=== PATIENT | female | born 1945 | race Caucasian/White ===

== ENCOUNTER 2016-07-02 14:00 | Inpatient (IN) | payer MEDICARE, OTHER ==
--- NOTE | 2016-07-02 17:37 | History and Physical Report ---
History of Present Illnes - History of Present Illness Reason for Visit: gait disturbance History of Present Illness: 71yo white female who underwent ant/posterior lumbar fusion of L3 thru S1. Patient did not have any interpretative problems. Patient states that since surgery she has been having some sharp radiating pain in the left hip/thigh area over the L2-3 area Did become anemic post surgery and was found to have a Hgb of 6.8. She was transfused 1 unit BRBC with Hgb improving to 8.3. Pain has been controlled with oxycodone/APAP 5/325 1-2 q 4 hours. Last BM was small and yesterday.No breathing issues, no chest pain noted. No urinary problems noted. Patient has been up ambulating short distances. - Past Medical History Cardiac: HTN Gastrointestinal: GERD Endocrine: Diabetes (type 2, diet controlled), Other (Vitamin D def) - Past Surgical History Past Surgical History: Appendectomy, Cataract Removal, Hysterectomy, Total Knee Replacement (left), Other (Anterior cervicaldisectomy and fussion, left arthroscopic surgery, BTL) - Past Family History Mother Family History: Cancer (uterine), (57yo) Father Family History: CAD, (61yo) Brother 1 Family History: Cancer (renal cell carcinoma), Brother 3 Family History: None Brother 4 Family History: None Sister 1 Family History: Cancer (breast), CAD, Sister 2 Family History: Cancer (breast), - Past Social History Smoke: # pack years (30), Quit (1989) Alcohol: None Drugs: None Lives: With Family Domestic Violence: Negative - Health Maintenance Health Maintenance: Cholesterol, Influenza Vaccine, Pneumococcal Vaccine, Mammogram Influenza Vaccine: Current for this Influenza Season Pneumonia Vaccine: Yes Resuscitation Status: full code - Unable to Obtain History Unable to Obtain: No Review of Systems - Review of Systems Constitutional: Weakness. negative: Fever, Chills Eyes: negative: pain, vision change ENT: negative: Ear Pain, Ear Discharge, Nose Pain, Nose Discharge, Nose Congestion, Mouth Pain, Mouth Swelling, Throat Pain Respiratory: negative: Cough, Dry, Shortness of Breath, Hemoptysis, SOB with Excertion, Pleuritic Pain, Sputum, Wheezing Cardiovascular: Edema (bilateral). negative: Chest Pain, Palpitations, Paroxysmal Noc. Dyspnea, Light Headedness Gastrointestinal: Constipation, Other (mild distention). negative: Nausea, Vomiting, Abdominal Pain, Diarrhea, Melena, Hematochezia Genitourinary: negative: Dysuria, Frequency, Incontinence, Hematuria Musculoskeletal: Back Pain Skin: negative: Rash, Lesions Neurological: negative: Weakness, Numbness, Incoordination, Change in Speech - Medications/Allergies Allergies/Adverse Reactions: Allergies Allergy/AdvReac Type Severity Reaction Status Date / Time tramadol Allergy Mild Unverified 10/21/12 14:02 CT Dye Allergy Mild Uncoded 10/21/12 14:02 Home Medications: Home Medications Aspirin [Adult Low Dose Aspirin EC] 1 tab PO DAILY 07/02/16 Calcium Citrate [Calcitrate] 1 tab PO DAILY 07/02/16 Cholecalciferol [Vitamin D-3] 7,000 units PO DAILY 07/02/16 Ferrous Sulfate [Feosol] 1 tab PO DAILY 07/02/16 Hydrocortisone 2.5% Rectal [Proctosol-Hc 2.5% Rectal] 1 applic RC HS 07/02/16 Omeprazole [Prilosec] 1 cap PO 0700 07/02/16 Polyethylene Glycol 3350 [Miralax] 1 packet PO [id number] 07/02/16 Pravastatin Sodium [Pravachol] 20 mg PO HS 07/02/16 Teriparatide [Forteo] 2.4 ml SQ 07/02/16 oxyCODONE HCL/ACETAMINOPHEN [Percocet 5/325] 1 - 2 tab PO Q4 PRN 07/02/16 Exam - Exam Vital Signs: Vital Signs (72 hours) 07/02/16 14:24 Temperature 98.4 F Pulse Rate [ 79 Right] Respiratory 18 Rate Blood Pressure 138/65 [Right Arm] O2 Sat by Pulse 98 Oximetry General: Alert, Oriented to Person, Oriented to Place, Oriented to Time, Cooperative, No acute distress HEENT: Atraumatic, PERRLA, EOMI, Mouth Mucous membr. moist/[place], Nose Mucous membr. moist/[place], Dentition Normal Neck: Normal Range of Motion Carotids: bruits noted bilateral L>R; 2/4 Thyroid: WNL Lungs: Clear to auscultation, Normal air movement, Speaks full Sentences Cardiovascular: Regular rate, Normal S1, Normal S2, No murmurs. No: Gallops, Murmur Abdomen: Normal bowel sounds, Soft (mild distention), No tenderness, No hepatospenomegaly, No masses Integumentary: Normal, [place], Warm, Dry, Other (tape [place] healing to the facial area, anterior abd dressing clean and dry, stables in the posterior inscision site) Extremities: No clubbing, No cyanosis, No edema, Normal pulses, No tenderness/ swelling Neurological: Normal gait, Normal speech, Strength Equal Bilat, Normal tone, Sensation intact, Cranial nerves 3-12 NL, Reflexes 2+ Psych/Mental Status: Mental status NL, Mood NL, Appropriate Affect, Intact Judgment VTE Assessment - RISK FACTOR SCORE VTE RISK FACTOR SCORES: AGE OVER 60 YEARS, ANTICIPATED BED CONFINEMENT OR IMMOBILIZATION > 24 HOURS, MAJOR SURGERY/ANESTHESIA TIME > 1 HOUR - RISK VTE MODERATE RISK: SCORE OF 2 (RISK PROXIMAL DVT 2-4%) PROPHYAXIS NEEDED VTE HIGH RISK: SCORE OF 3-4 (RISK PROXIMAL DVT 4-8%) PROPHYLAXIS NEEDED
[2016-07-02 17:38] VITALS: BMI 26.6
[2016-07-02] MEDS ORDERED: oxyCODONE/ACETAMINOPHEN 5/325 TABLET PO PRN (18:15)
[2016-07-02] MEDS ORDERED: ACETAMINOPHEN 325 MG TABLET PO PRN (18:23)
[2016-07-02] MEDS ORDERED: oxyCODONE/ACETAMINOPHEN 5/325 TABLET PO ONE (18:23)
[2016-07-02] MEDS ORDERED: POLYETHYLENE GLYCOL 3350 17 GM POWD.PACK ONE (18:35)
[2016-07-02] MEDS ORDERED: POLYETHYLENE GLYCOL 3350 17 GM POWD.PACK PO ONE (18:58)
[2016-07-02] MEDS: oxyCODONE/ACETAMINOPHEN 5/325 TABLET PO PRN (19:11)
[2016-07-02] MEDS: PRAVASTATIN SODIUM 20 MG TABLET PO SCH (21:35)
[2016-07-03] MEDS: oxyCODONE/ACETAMINOPHEN 5/325 TABLET PO PRN ×5 (00:57→21:39)
[2016-07-03] MEDS: CALCIUM CARB 500/VIT D 200 1 EACH TABLET PO SCH (08:05)
[2016-07-03] MEDS ORDERED: CHOLECALCIFEROL 1,000 UNIT TABLET PO SCH (09:00)
[2016-07-03] MEDS ORDERED: ASPIRIN EC 81 MG TABLET.DR PO SCH (09:00)
[2016-07-03] MEDS ORDERED: POLYETHYLENE GLYCOL 3350 17 GM POWD.PACK PO SCH (18:00)
[2016-07-03] MEDS ORDERED: ENOXAPARIN SODIUM 100 MG/ML DISP.SYRIN SQ ONE (18:56)
[2016-07-03] MEDS ORDERED: ENOXAPARIN SODIUM 40 MG/0.4 ML DISP.SYRIN SQ ONE (19:16)
[2016-07-03] MEDS: PRAVASTATIN SODIUM 20 MG TABLET PO SCH (19:29)
[2016-07-04] MEDS: oxyCODONE/ACETAMINOPHEN 5/325 TABLET PO PRN ×3 (07:53→23:57)
[2016-07-04] MEDS: CALCIUM CARB 500/VIT D 200 1 EACH TABLET PO SCH (08:18)
[2016-07-04] MEDS ORDERED: MAGNESIUM CITRATE 296 ML BOTTLE PO ONE (08:47)
[2016-07-04] MEDS: POLYETHYLENE GLYCOL 3350 17 GM POWD.PACK PO SCH ×2 (09:07→20:37)
[2016-07-04] MEDS ORDERED: ENOXAPARIN SODIUM 40 MG/0.4 ML DISP.SYRIN SQ ONE (13:59)
[2016-07-04] MEDS ORDERED: POLYETHYLENE GLYCOL 3350 17 GM POWD.PACK PO SCH (18:00)
[2016-07-04] MEDS: PRAVASTATIN SODIUM 20 MG TABLET PO SCH (20:37)
[2016-07-04] MEDS: ENOXAPARIN SODIUM 60 MG/0.6 ML DISP.SYRIN SQ SCH (20:38)
[2016-07-05] MEDS: oxyCODONE/ACETAMINOPHEN 5/325 TABLET PO PRN ×4 (07:23→20:43)
[2016-07-05] MEDS: CALCIUM CARB 500/VIT D 200 1 EACH TABLET PO SCH (08:26)
[2016-07-05] MEDS: POLYETHYLENE GLYCOL 3350 17 GM POWD.PACK PO SCH ×2 (08:27→20:43)
[2016-07-05] MEDS ORDERED: ENOXAPARIN SODIUM 40 MG/0.4 ML DISP.SYRIN SQ ONE (13:21)
[2016-07-05] MEDS ORDERED: HYDROCORTISONE 2.5% RECTAL 28.35 GM TUBE RC PRN (14:00)
[2016-07-05] MEDS: ACYCLOVIR 200 MG CAPSULE PO SCH ×2 (18:33→20:42)
[2016-07-05] MEDS: CHOLECALCIFEROL 1,000 UNIT TABLET PO SCH (18:33)
[2016-07-05] MEDS: ASPIRIN EC 81 MG TABLET.DR PO SCH (18:34)
[2016-07-05] MEDS: ENOXAPARIN SODIUM 60 MG/0.6 ML DISP.SYRIN SQ SCH (20:42)
[2016-07-05] MEDS: PRAVASTATIN SODIUM 20 MG TABLET PO SCH (20:43)
[2016-07-06] MEDS: oxyCODONE/ACETAMINOPHEN 5/325 TABLET PO PRN ×4 (01:42→20:18)
[2016-07-06] MEDS: ACYCLOVIR 200 MG CAPSULE PO SCH ×4 (07:43→20:18)
[2016-07-06] MEDS: ASPIRIN EC 81 MG TABLET.DR PO SCH (07:43)
[2016-07-06] MEDS: CALCIUM CARB 500/VIT D 200 1 EACH TABLET PO SCH (07:43)
[2016-07-06] MEDS: CHOLECALCIFEROL 1,000 UNIT TABLET PO SCH (07:44)
[2016-07-06] MEDS: POLYETHYLENE GLYCOL 3350 17 GM POWD.PACK PO SCH ×2 (09:34→20:24)
[2016-07-06] MEDS ORDERED: ENOXAPARIN SODIUM 40 MG/0.4 ML DISP.SYRIN SQ ONE (18:27)
[2016-07-06] MEDS: PRAVASTATIN SODIUM 20 MG TABLET PO SCH (20:18)
[2016-07-06] MEDS: ENOXAPARIN SODIUM 60 MG/0.6 ML DISP.SYRIN SQ SCH (20:18)
[2016-07-07] MEDS: oxyCODONE/ACETAMINOPHEN 5/325 TABLET PO PRN ×4 (01:30→18:52)
[2016-07-07] MEDS: ACYCLOVIR 200 MG CAPSULE PO SCH ×4 (08:23→19:49)
[2016-07-07] MEDS: CALCIUM CARB 500/VIT D 200 1 EACH TABLET PO SCH (08:25)
[2016-07-07] MEDS: CHOLECALCIFEROL 1,000 UNIT TABLET PO SCH (08:26)
[2016-07-07] MEDS: ASPIRIN EC 81 MG TABLET.DR PO SCH (08:26)
[2016-07-07] MEDS: POLYETHYLENE GLYCOL 3350 17 GM POWD.PACK PO SCH ×2 (08:27→19:48)
[2016-07-07] MEDS ORDERED: ENOXAPARIN SODIUM 40 MG/0.4 ML DISP.SYRIN SQ ONE (14:36)
[2016-07-07] MEDS: PRAVASTATIN SODIUM 20 MG TABLET PO SCH (19:48)
[2016-07-07] MEDS: ENOXAPARIN SODIUM 60 MG/0.6 ML DISP.SYRIN SQ SCH (19:49)
[2016-07-08] MEDS: oxyCODONE/ACETAMINOPHEN 5/325 TABLET PO PRN ×4 (01:27→18:33)
[2016-07-08] MEDS ORDERED: ENOXAPARIN SODIUM 40 MG/0.4 ML DISP.SYRIN SQ ONE (05:33)
[2016-07-08] MEDS: ACYCLOVIR 200 MG CAPSULE PO SCH ×4 (08:38→19:55)
[2016-07-08] MEDS: ASPIRIN EC 81 MG TABLET.DR PO SCH (08:40)
[2016-07-08] MEDS: CALCIUM CARB 500/VIT D 200 1 EACH TABLET PO SCH (08:40)
[2016-07-08] MEDS: CHOLECALCIFEROL 1,000 UNIT TABLET PO SCH (08:41)
[2016-07-08] MEDS: POLYETHYLENE GLYCOL 3350 17 GM POWD.PACK PO SCH ×2 (09:58→19:55)
[2016-07-08] MEDS: PRAVASTATIN SODIUM 20 MG TABLET PO SCH (19:54)
[2016-07-08] MEDS: ENOXAPARIN SODIUM 60 MG/0.6 ML DISP.SYRIN SQ SCH (19:55)
[2016-07-09] MEDS: oxyCODONE/ACETAMINOPHEN 5/325 TABLET PO PRN ×5 (00:08→20:40)
[2016-07-09 06:55] LABS: BASOPHILS % 0.6 (0.0-1.5); EOSINOPHILS % 8.4 % (0.0-6.8); MEAN CORPUSCULAR HEMOGLOBIN 29.3 pg (28.0-34.0); MEAN CORPUSCULAR VOLUME 93.4 fl (80.0-100.0); MONOCYTES % 4.5 % (0.0-11.0)
[2016-07-09 07:13] LABS: eGFR (African) > 60; eGFR (Non-African) > 60
[2016-07-09] MEDS: CALCIUM CARB 500/VIT D 200 1 EACH TABLET PO SCH (08:38)
[2016-07-09] MEDS: ASPIRIN EC 81 MG TABLET.DR PO SCH (08:38)
[2016-07-09] MEDS: POLYETHYLENE GLYCOL 3350 17 GM POWD.PACK PO SCH ×2 (08:39→20:50)
[2016-07-09] MEDS: CHOLECALCIFEROL 1,000 UNIT TABLET PO SCH (08:40)
[2016-07-09] MEDS: ACYCLOVIR 200 MG CAPSULE PO SCH ×5 (11:03→20:49)
[2016-07-09] MEDS: PRAVASTATIN SODIUM 20 MG TABLET PO SCH (20:41)
[2016-07-09] MEDS: ENOXAPARIN SODIUM 60 MG/0.6 ML DISP.SYRIN SQ SCH (20:50)
[2016-07-10] MEDS: oxyCODONE/ACETAMINOPHEN 5/325 TABLET PO PRN ×4 (02:15→19:46)
[2016-07-10] MEDS: CHOLECALCIFEROL 1,000 UNIT TABLET PO SCH (08:25)
[2016-07-10] MEDS: POLYETHYLENE GLYCOL 3350 17 GM POWD.PACK PO SCH ×2 (08:25→20:36)
[2016-07-10] MEDS: CALCIUM CARB 500/VIT D 200 1 EACH TABLET PO SCH (08:27)
[2016-07-10] MEDS: ASPIRIN EC 81 MG TABLET.DR PO SCH (08:27)
[2016-07-10] MEDS: VALACYCLOVIR 500 MG PO SCH ×2 (09:30→20:37)
[2016-07-10] MEDS: ENOXAPARIN SODIUM 60 MG/0.6 ML DISP.SYRIN SQ SCH (20:35)
[2016-07-10] MEDS: PRAVASTATIN SODIUM 20 MG TABLET PO SCH (20:37)
[2016-07-11] MEDS: oxyCODONE/ACETAMINOPHEN 5/325 TABLET PO PRN ×4 (00:15→19:45)
[2016-07-11] MEDS: CHOLECALCIFEROL 1,000 UNIT TABLET PO SCH (09:11)
[2016-07-11] MEDS: VALACYCLOVIR 500 MG PO SCH ×2 (09:13→20:20)
[2016-07-11] MEDS: ASPIRIN EC 81 MG TABLET.DR PO SCH (09:13)
[2016-07-11] MEDS: POLYETHYLENE GLYCOL 3350 17 GM POWD.PACK PO SCH ×3 (09:13→20:06)
[2016-07-11] MEDS: CALCIUM CARB 500/VIT D 200 1 EACH TABLET PO SCH (09:14)
[2016-07-11] MEDS ORDERED: Non-Formulary 1 EACH PO SCH (17:18)
[2016-07-11] MEDS: PRAVASTATIN SODIUM 20 MG TABLET PO SCH (19:46)
[2016-07-11] MEDS ORDERED: ENOXAPARIN SODIUM 40 MG/0.4 ML DISP.SYRIN SQ ONE (19:48)
[2016-07-11] MEDS: ENOXAPARIN SODIUM 60 MG/0.6 ML DISP.SYRIN SQ SCH (19:51)
[2016-07-11] MEDS: GABAPENTIN 300 MG CAPSULE PO SCH (20:22)
[2016-07-12] MEDS: oxyCODONE/ACETAMINOPHEN 5/325 TABLET PO PRN ×3 (07:52→20:29)
[2016-07-12] MEDS: FORTEO 20 MCG IM SCH (09:30)
[2016-07-12] MEDS: POLYETHYLENE GLYCOL 3350 17 GM POWD.PACK PO SCH ×2 (09:39→20:30)
[2016-07-12] MEDS: ASPIRIN EC 81 MG TABLET.DR PO SCH (09:40)
[2016-07-12] MEDS: CHOLECALCIFEROL 1,000 UNIT TABLET PO SCH (09:41)
[2016-07-12] MEDS: VALACYCLOVIR 500 MG PO SCH ×2 (09:42→20:30)
[2016-07-12] MEDS: CALCIUM CARB 500/VIT D 200 1 EACH TABLET PO SCH (09:49)
[2016-07-12] MEDS: PRAVASTATIN SODIUM 20 MG TABLET PO SCH (20:29)
[2016-07-12] MEDS: GABAPENTIN 300 MG CAPSULE PO SCH (20:30)
[2016-07-12] MEDS ORDERED: ENOXAPARIN SODIUM 40 MG/0.4 ML DISP.SYRIN SQ ONE (20:31)
[2016-07-12] MEDS: ENOXAPARIN SODIUM 60 MG/0.6 ML DISP.SYRIN SQ SCH (20:33)
[2016-07-13] MEDS: oxyCODONE/ACETAMINOPHEN 5/325 TABLET PO PRN ×5 (02:01→20:56)
[2016-07-13] MEDS: CHOLECALCIFEROL 1,000 UNIT TABLET PO SCH (08:24)
[2016-07-13] MEDS: VALACYCLOVIR 500 MG PO SCH ×2 (08:26→20:54)
[2016-07-13] MEDS: ASPIRIN EC 81 MG TABLET.DR PO SCH (08:26)
[2016-07-13] MEDS: FORTEO 20 MCG IM SCH (08:27)
[2016-07-13] MEDS: CALCIUM CARB 500/VIT D 200 1 EACH TABLET PO SCH (08:28)
[2016-07-13] MEDS: POLYETHYLENE GLYCOL 3350 17 GM POWD.PACK PO SCH ×2 (08:28→21:45)
[2016-07-13] MEDS ORDERED: ENOXAPARIN SODIUM 40 MG/0.4 ML DISP.SYRIN SQ ONE (14:19)
[2016-07-13] MEDS: ENOXAPARIN SODIUM 60 MG/0.6 ML DISP.SYRIN SQ SCH (20:53)
[2016-07-13] MEDS: GABAPENTIN 300 MG CAPSULE PO SCH (20:54)
[2016-07-13] MEDS: PRAVASTATIN SODIUM 20 MG TABLET PO SCH (20:54)
[2016-07-14] MEDS: GABAPENTIN 300 MG CAPSULE PO SCH ×3 (06:16→20:24)
[2016-07-14] MEDS: oxyCODONE/ACETAMINOPHEN 5/325 TABLET PO PRN ×3 (07:32→20:26)
[2016-07-14] MEDS: CALCIUM CARB 500/VIT D 200 1 EACH TABLET PO SCH (08:28)
[2016-07-14] MEDS: ASPIRIN EC 81 MG TABLET.DR PO SCH (08:28)
[2016-07-14] MEDS: CHOLECALCIFEROL 1,000 UNIT TABLET PO SCH (08:31)
[2016-07-14] MEDS: FORTEO 20 MCG IM SCH (08:45)
[2016-07-14] MEDS: POLYETHYLENE GLYCOL 3350 17 GM POWD.PACK PO SCH ×2 (08:47→20:24)
[2016-07-14] MEDS ORDERED: ENOXAPARIN SODIUM 40 MG/0.4 ML DISP.SYRIN SQ ONE (15:43)
[2016-07-14] MEDS: ENOXAPARIN SODIUM 60 MG/0.6 ML DISP.SYRIN SQ SCH (20:23)
[2016-07-14] MEDS: PRAVASTATIN SODIUM 20 MG TABLET PO SCH (20:24)
[2016-07-15] MEDS: oxyCODONE/ACETAMINOPHEN 5/325 TABLET PO PRN ×3 (06:30→19:50)
[2016-07-15] MEDS: GABAPENTIN 300 MG CAPSULE PO SCH ×2 (08:25→19:50)
[2016-07-15] MEDS: ASPIRIN EC 81 MG TABLET.DR PO SCH (08:25)
[2016-07-15] MEDS: CALCIUM CARB 500/VIT D 200 1 EACH TABLET PO SCH (08:25)
[2016-07-15] MEDS: CHOLECALCIFEROL 1,000 UNIT TABLET PO SCH (08:26)
[2016-07-15] MEDS: FORTEO 20 MCG IM SCH (08:42)
[2016-07-15] MEDS: POLYETHYLENE GLYCOL 3350 17 GM POWD.PACK PO SCH ×2 (09:46→19:50)
[2016-07-15] MEDS ORDERED: ENOXAPARIN SODIUM 40 MG/0.4 ML DISP.SYRIN SQ ONE (14:55)
[2016-07-15] MEDS: ENOXAPARIN SODIUM 60 MG/0.6 ML DISP.SYRIN SQ SCH (19:50)
[2016-07-15] MEDS: PRAVASTATIN SODIUM 20 MG TABLET PO SCH (19:50)
[2016-07-16] MEDS: oxyCODONE/ACETAMINOPHEN 5/325 TABLET PO PRN ×4 (03:39→20:12)
[2016-07-16] MEDS: GABAPENTIN 300 MG CAPSULE PO SCH ×2 (09:08→20:13)
[2016-07-16] MEDS: ASPIRIN EC 81 MG TABLET.DR PO SCH (09:08)
[2016-07-16] MEDS: POLYETHYLENE GLYCOL 3350 17 GM POWD.PACK PO SCH ×2 (09:08→20:13)
[2016-07-16] MEDS: CALCIUM CARB 500/VIT D 200 1 EACH TABLET PO SCH (09:08)
[2016-07-16] MEDS: FORTEO 20 MCG IM SCH (09:09)
[2016-07-16] MEDS: CHOLECALCIFEROL 1,000 UNIT TABLET PO SCH (09:09)
[2016-07-16] MEDS ORDERED: ENOXAPARIN SODIUM 40 MG/0.4 ML DISP.SYRIN SQ ONE (13:49)
[2016-07-16] MEDS: PRAVASTATIN SODIUM 20 MG TABLET PO SCH (20:12)
[2016-07-16] MEDS: ENOXAPARIN SODIUM 60 MG/0.6 ML DISP.SYRIN SQ SCH (20:13)
[2016-07-17] MEDS: oxyCODONE/ACETAMINOPHEN 5/325 TABLET PO PRN ×3 (05:19→19:37)
[2016-07-17] MEDS ORDERED: ONDANSETRON HCL 4 MG TAB.RAPDIS ONE (08:01)
[2016-07-17] MEDS ORDERED: ONDANSETRON HCL 4 MG TAB.RAPDIS PO PRN (08:03)
[2016-07-17] MEDS: ASPIRIN EC 81 MG TABLET.DR PO SCH (10:12)
[2016-07-17] MEDS: GABAPENTIN 300 MG CAPSULE PO SCH ×2 (10:12→19:37)
[2016-07-17] MEDS: CALCIUM CARB 500/VIT D 200 1 EACH TABLET PO SCH (10:12)
[2016-07-17] MEDS: FORTEO 20 MCG IM SCH (10:13)
[2016-07-17] MEDS: POLYETHYLENE GLYCOL 3350 17 GM POWD.PACK PO SCH ×2 (10:13→19:36)
[2016-07-17] MEDS: CHOLECALCIFEROL 1,000 UNIT TABLET PO SCH (10:13)
[2016-07-17] MEDS ORDERED: oxyCODONE/ACETAMINOPHEN 5/325 TABLET PO ONE ×2 (13:57→19:33)
[2016-07-17] MEDS ORDERED: ENOXAPARIN SODIUM 40 MG/0.4 ML DISP.SYRIN SQ ONE ×2 (17:22→19:34)
[2016-07-17] MEDS: PRAVASTATIN SODIUM 20 MG TABLET PO SCH (19:36)
[2016-07-17] MEDS: ENOXAPARIN SODIUM 60 MG/0.6 ML DISP.SYRIN SQ SCH (19:37)
--- NOTE | 2016-07-17 21:33 | Discharge Summary ---
Discharge Summary - Discharge Sumary History of Present Illness: 71yo white female who underwent ant/posterior lumbar fusion of L3 thru S1. Patient did not have any interpretative problems. Patient states that since surgery she has been having some sharp radiating pain in the left hip/thigh area over the L2-3 area Did become anemic post surgery and was found to have a Hgb of 6.8. She was transfused 1 unit BRBC with Hgb improving to 8.3. Pain has been controlled with oxycodone/APAP 5/325 1-2 q 4 hours. Last BM was small and yesterday.No breathing issues, no chest pain noted. No urinary problems noted. Patient has been up ambulating short distances. Condition at Discharge: Stable Home Medications: Ambulatory Orders Medication Instructions Recorded Aspirin [Adult Low Dose Aspirin EC] 1 tab PO DAILY 07/02/16 Calcium Citrate [Calcitrate] 1 tab PO DAILY 07/02/16 Cholecalciferol [Vitamin D-3] 7,000 units PO DAILY 07/02/16 Ferrous Sulfate [Feosol] 1 tab PO DAILY 07/02/16 Omeprazole [Prilosec] 1 cap PO 0700 07/02/16 Polyethylene Glycol 3350 [Miralax] 1 packet PO [id number] 07/02/16 Pravastatin Sodium [Pravachol] 20 mg PO HS 07/02/16 Teriparatide [Forteo] 2.4 ml SQ 07/02/16 Acetaminophen [Tylenol] 650 mg PO Q6H PRN #0 tablet 07/17/16 Cyclobenzaprine HCl 5 mg PO TID PRN #90 tablet 07/17/16 Gabapentin [Neurontin] 300 mg PO BID #60 capsule 07/17/16 Hydrocortisone 2.5% Rectal 1 applic RC HS PRN #1 tube 07/17/16 [Proctosol-Hc 2.5% Rectal] Consultations this Visit: None Procedures this Visit: None Allergies/Adverse Reactions: Allergies Allergy/AdvReac Type Severity Reaction Status Date / Time tramadol Allergy Mild Verified 07/02/16 19:03 Iodinated Contrast Media - Allergy Verified 07/02/16 19:05 IV Dye Discharge Summary: Patient was started on physical and occupational therapy. Patient was highly motivated and participated well. Patient did make improvement with her ability to ambulate and transfer independently. Diabetes mellitus was monitored patient blood sugar remains stable. Patient did not have any hypoglycemic or hypoglycemic episodes. Hypertension was monitored. Patient was continued on home medications. Patient was discharged in stable condition. - Final Diagnosis (1) Gait disturbance Problems: improved (2) Fusion of lumbar spine Problems: stable (3) Diabetes type 2, controlled Problems: stable (4) Essential hypertension Problems: stable
[2016-07-18] MEDS ORDERED: oxyCODONE/ACETAMINOPHEN 5/325 TABLET PO ONE ×2 (00:38→06:40)
[2016-07-18] MEDS: oxyCODONE/ACETAMINOPHEN 5/325 TABLET PO PRN ×2 (00:41→06:43)
[2016-07-18] MEDS: ASPIRIN EC 81 MG TABLET.DR PO SCH (08:51)
[2016-07-18] MEDS: CALCIUM CARB 500/VIT D 200 1 EACH TABLET PO SCH (08:51)
[2016-07-18] MEDS: CHOLECALCIFEROL 1,000 UNIT TABLET PO SCH (08:52)
[2016-07-18] MEDS: GABAPENTIN 300 MG CAPSULE PO SCH (08:52)
[2016-07-18] MEDS: FORTEO 20 MCG IM SCH (08:53)
[2016-07-18] MEDS: POLYETHYLENE GLYCOL 3350 17 GM POWD.PACK PO SCH (08:55)
[2016-07-18 10:57] VITALS: BP 107/59
--- NOTE | 2016-09-01 10:55 | Inpatient Progress Note ---
Subjective - Required Recertification Statement I anticipate X number of days because-include discharge plan: 7 - Review of Systems Events since last encounter: Patient continued to do well at this time. Patient not voicing any complaints. Pain is well controlled with her current medications. Patient amatory ability is improving. Objective - Exam Vitals and I&O: Vital Signs Temp 97.3 F L 07/18/16 09:00 Pulse 75 07/18/16 09:00 Resp 16 07/18/16 09:00 BP 107/59 07/18/16 09:00 Pulse Ox 98 07/18/16 09:00 General: Alert, Oriented to Person, Oriented to Place Neck: Supple Lungs: Clear to auscultation, Normal air movement, Speaks full Sentences Cardiovascular: Regular rate, Normal S1 Abdomen: Normal bowel sounds, Soft, No tenderness Extremities: No clubbing, No cyanosis Skin: Normal, [place], Warm, Dry Neurological: Normal speech Psych/Mental Status: Mental status NL, Mood NL, Intact Judgment - Results Results: Laboratory Results WBC 7.80 K/ul (4.00-12.00) 07/09/16 06:35 RBC 3.39 M/ul (3.90-5.20) L 07/09/16 06:35 Hgb 9.9 g/dL (12.0-16.0) L 07/09/16 06:35 Hct 31.7 % (34.5-46.5) L 07/09/16 06:35 MCV 93.4 fl (80.0-100.0) 07/09/16 06:35 MCH 29.3 pg (28.0-34.0) 07/09/16 06:35 MCHC 31.4 g/dL (30.0-36.0) 07/09/16 06:35 RDW 12.8 % (11.3-14.3) 07/09/16 06:35 Plt Count 572 K/mm3 (130-400) H 07/09/16 06:35 Neut % (Auto) 63.8 % (39.0-79.0) 07/09/16 06:35 Lymph % (Auto) 20.9 % (16.0-50.0) 07/09/16 06:35 Bates % (Auto) 4.5 % (0.0-11.0) 07/09/16 06:35 Eos % (Auto) 8.4 % (0.0-6.8) H 07/09/16 06:35 Baso % (Auto) 0.6 (0.0-1.5) 07/09/16 06:35 Neut # 5.0 # k/uL (1.4-7.7) 07/09/16 06:35 Lymph # 1.6 # k/uL (0.6-4.0) 07/09/16 06:35 Bates # 0.4 # k/uL (0.0-0.9) 07/09/16 06:35 Eos # 0.7 # k/uL (0.0-0.6) H 07/09/16 06:35 Baso # 0.0 # k/uL (0.0-0.5) 07/09/16 06:35 Reactive Lymphs % 1.7 % (0.0-5.0) 07/09/16 06:35 Reactive Lymphs # 0.1 # k/uL (0.0-0.8) 07/09/16 06:35 Sodium 137 mmol/L (136-145) 07/09/16 06:35 Potassium 4.0 mmol/L (3.5-5.0) 07/09/16 06:35 Chloride 103 mmol/L (98-110) 07/09/16 06:35 Carbon Dioxide 30 mmol/L (20-32) 07/09/16 06:35 BUN 7 mg/dL (10-26) L 07/09/16 06:35 Creatinine 0.6 mg/dL (0.4-1.5) 07/09/16 06:35 Estimated Creat Clear 107 07/09/16 06:35 Est GFR ( Amer) > 60 (60-) 07/09/16 06:35 Est GFR (Non-Af Amer) > 60 (60-) 07/09/16 06:35 Glucose 108 mg/dL (70-99) H 07/09/16 06:35 Calcium 9.3 mg/dL (8.5-10.5) 07/09/16 06:35 Total Bilirubin 0.2 mg/dL (0.2-1.2) 07/09/16 06:35 AST 20 U/L (0-41) 07/09/16 06:35 ALT 16 U/L (0-45) 07/09/16 06:35 Alkaline Phosphatase 149 U/L (46-116) H 07/09/16 06:35 Total Protein 6.5 g/dL (6.0-8.5) 07/09/16 06:35 Albumin 3.6 g/dL (3.0-5.5) 07/09/16 06:35 Assessment/Plan - Assessment/Plan (1) Gait disturbance Status: Acute Assessment: improving (2) Fusion of lumbar spine Status: Acute Assessment: stable (3) Diabetes type 2, controlled Status: Chronic Qualifiers: Diabetes mellitus complication status: without complication Diabetes mellitus underwriting consultant insulin use: without underwriting consultant use Qualified Code(s): E11.9 - Type 2 diabetes mellitus without complications (4) Essential hypertension Status: Chronic Plan: continue home meds
== END 2016-07-18 11:34 | disposition home health service (06) | DRG 951 ==
LOC: UNDOADMIN 14:00 → SOUTH 14:00
PROVIDERS: ADMIT Family Medicine; ATTEND Family Medicine
DX: Z98.890 Other specified postprocedural states (principal); R26.9 Unspecified abnormalities of gait and mobility; M54.5 Low back pain; E11.9 Type 2 diabetes mellitus without complications; I10 Essential (primary) hypertension
CPT/HCPCS: 36415; 80053; 85025; J1650; A9270; A9270-GY

== ENCOUNTER 2016-08-06 13:39 | Outpatient (CLI) | payer MEDICARE, OTHER ==
--- NOTE | 2016-08-06 14:28 | Diagnostic Imaging Report ---
[facility] [address] [facility].[address] [address] Report Submission Date: August 06, 2016 2:15:23 PM CDT Patient Study Name: SHADE BAIRD Date: August 06, 2016 1:50:52 PM CDT Modality Type: US Gender: F Description: UNILAT LTD STDY EXT VEINS : 45 Institution: [facility] Physician: DEBBY SYKES - JUAN JOSÉ Duplex imaging of the right lower extremity CLINICAL HISTORY: Swelling and burning for 2 weeks. TECHNIQUE: Real-time sonography of the right lower extremity is performed in transverse and longitudinal views. Doppler interrogation and color flow imaging are additionally used. FINDINGS: There are normal Doppler waveforms from the interrogated vessels with normal respiratory fluctuation and augmentation. There is no echogenic thrombus identified within the vessel lumen. The veins compress normally. IMPRESSION: No evidence of deep venous thrombosis. Electronically signed on August 06, 2016 2:15:23 PM CDT by: Chun RIVAS
== END 2016-08-06 13:40 ==
LOC: RAD 13:39
PROVIDERS: ATTEND Family Medicine
DX: R60.0 Localized edema (principal)
CPT/HCPCS: 93971

== ENCOUNTER 2016-12-05 08:56 | Outpatient (CLI) | payer MEDICARE, OTHER ==
--- NOTE | 2016-12-06 06:53 | Diagnostic Imaging Report ---
DEBBY SYKES [facility] [address] [facility].[address] [address] Report Submission Date: Dec 05, 2016 9:53:52 AM CDT Patient Study Name: SHADE BAIRD Date: Dec 05, 2016 9:14:17 AM CDT Modality Type: US Gender: F Description: DPLX SCN XTRCRAN ART CMP NAMRATA : 45 Institution: [facility] [place] [facility] Physician: DEBBY SYKES Ultrasound carotid Doppler History: Carotid bruit Findings: Spectral Doppler sonography of the carotid and vertebral arteries is performed. On the right there is mild mixed echogenicity plaque in the carotid bulb and origins of the internal and external carotid arteries. Antegrade right carotid and vertebral artery flow is observed with normal Doppler waveforms. The right internal carotid artery is tortuous. And on the left there is a moderate amount of eccentric mixed echogenicity plaque in the distal common carotid artery and to a lesser extent the origins of the internal and external carotid arteries. Antegrade left carotid and vertebral artery flow is observed with normal Doppler waveforms. Peak internal carotid systolic velocities are 158 cm per second right and 106 left. Peak internal carotid and diastolic velocities are 53 cm per second right and 36 left. Internal to common carotid artery ratios are 1.6 right and 0.8 left. Impression: 1. Using peak systolic velocity measurements there is 50 to 69% right internal carotid artery stenosis. However, this may be artifactual increased as the internal to common carotid artery is <2 and the vessel is tortuous. 2. No significant left carotid stenosis. 3. Antegrade vertebral artery flow. 4. Stenosis criteria is from the 2003 Radiologists in Ultrasound Consensus Conference. Electronically signed on Dec 05, 2016 9:53:52 AM CDT by: Harley RIVAS
== END 2016-12-05 08:57 ==
LOC: RAD 08:56
PROVIDERS: ATTEND Family Medicine
DX: R09.89 Other specified symptoms and signs involving the circulatory and respiratory systems (principal)
CPT/HCPCS: 93880

== ENCOUNTER 2017-06-13 10:47 | Outpatient (CLI) | payer MEDICARE, OTHER ==
[2017-06-13 11:03] LABS: BASOPHILS % 1.5 (0.0-1.5); EOSINOPHILS % 9.9 % (0.0-6.8); MEAN CORPUSCULAR HEMOGLOBIN 30.3 pg (28.0-34.0); MEAN CORPUSCULAR VOLUME 92.3 fl (80.0-100.0); MONOCYTES % 4.5 % (0.0-11.0); NEUTROPHILS # 3.2 # k/uL (1.4-7.7)
[2017-06-13 11:39] LABS: eGFR (African) > 60; eGFR (Non-African) > 60
== END 2017-06-13 10:50 ==
LOC: LAB 10:47
PROVIDERS: ATTEND Family Medicine
DX: E78.5 Hyperlipidemia, unspecified (principal); E11.9 Type 2 diabetes mellitus without complications; Z79.4 Long term (current) use of insulin; R53.83 Other fatigue
CPT/HCPCS: 36415; 80053; 80061; 83036; 84439; 84443; 84481; 85025

== ENCOUNTER 2018-09-05 10:15 | Outpatient (CLI) | payer MEDICARE, OTHER | END 2018-09-05 10:20 | disposition home or self-care (01) | LOC: RAD 10:15 | PROVIDERS: ATTEND Family Medicine | DX: R10.9 Unspecified abdominal pain (principal) | CPT/HCPCS: 74019 ==

== ENCOUNTER 2018-09-30 08:43 | Outpatient (CLI) | payer MEDICARE, OTHER ==
--- NOTE | 2018-09-30 10:11 | Diagnostic Imaging Report ---
DEBBY SYKES [facility] [address] [facility] [address] [place], [place]. [address] Report Submission Date: Sep 30, 2018 10:08:44 AM CDT Patient Study Name: SHADE BAIRD Date: Sep 30, 2018 9:06:00 AM CDT Modality Type: CT\SR Gender: F Description: CT ABD/PELV W/CONTRAST : 45 Institution: [facility] Physician: DEBBY SYKES Exam: CT abdomen and pelvis with contrast. History: Constipation. Axial images through the abdomen and pelvis after IV infusion of 90 cc Omnipaque is submitted along with sagittal and coronal reformatted images. The visualized lower lung bowling are clear. No free intraperitoneal air is identified. The gallbladder is partially distended without stones. The liver, spleen and pancreas are normal attenuation and enhancement. The adrenal glands are normal configuration. The abdominal aorta is of normal caliber and associated with atherosclerotic plaque. No periaortic lymphadenopathy is identified. A mild right-sided hydronephrosis is identified. No hydroureter is identified. No renal or ureteral stones are identified. The urinary bladder is partially distended without intrinsic filling defect. The small bowel is of normal caliber. Air and stool seen throughout the large intestine. No inflammatory changes in the mesentery or ascites is identified. Fusion of the lower lumbar spine is noted. No other bony abnormalities are identified. Impression: Mild right-sided hydronephrosis without renal or ureteral stones identified. This may indicate a recently passed stone. No left-sided hydronephrosis or hydroureter is noted. Nonspecific bowel gas pattern. No inflammatory changes in the mesentery or ascites is identified. Electronically signed on Sep 30, 2018 10:08:44 AM CDT by: Aman RIVAS
== END 2018-09-30 08:48 ==
LOC: RAD 08:43
PROVIDERS: ATTEND Family Medicine
DX: K59.01 Slow transit constipation (principal); N13.30 Unspecified hydronephrosis
CPT/HCPCS: 74177; Q9967